=== PATIENT | male | born 1965 | race Caucasian/White ===

== ENCOUNTER 2017-03-10 16:14 | Outpatient (CLI) | payer OTHER ==
[~2017-03-10 16:14] MED LIST: ALEVE220 MG PO; AMBIEN5 MG PO
--- NOTE | 2017-03-10 16:26 | DIAGNOSTIC IMAGING REPORT ---
PROCEDURE: XR CHEST 2 VIEW INDICATION: SHORTNESS OF BREATH TECHNIQUE: PA and lateral views. COMPARISON: None. FINDINGS: Lungs are clear. Heart and mediastinum are normal. Thorax is normal. IMPRESSION: 1. Negative chest.
== END 2017-03-10 23:00 ==
LOC: XR SRH 16:14
DX: R06.02 Shortness of breath (principal)

== ENCOUNTER → 2017-04-22 | Outpatient (CLI) | payer OTHER ==
--- NOTE | 2017-04-23 10:41 | DIAGNOSTIC IMAGING REPORT ---
PROCEDURE: US ABDOMEN ULTRASOUND-LIMITED INDICATION: HEP C TECHNIQUE: Kirby scale and color Doppler sonographic images were obtained of the right upper quadrant. COMPARISON: 09/04/2015 FINDINGS: The liver echotexture is mildly hyperechoic, coarse, and heterogeneous. No mass or biliary dilatation. The liver margin is micronodular, with slight progression since the prior study. The gallbladder surgically absent. The common duct is 4.6 mm. In the area of the proximal pancreas is normal without visible ductal dilatation or mass. The visible portion of the inferior vena cava, abdominal aorta, and portal vein appear normal with appropriate direction of flow in the portal vein. Appropriate phasicity in hepatic vein. The right kidney is normal measuring 11.0 cm. No free fluid in the right upper quadrant. IMPRESSION: 1. Coarse hepatic echotexture and micronodular margins with slight progression since the prior study. 2. No hepatic mass. 3. Cholecystectomy. 4. Appropriate portal and systemic venous flow.
== END ==
LOC: RT SRH 12:48
DX: R94.31 Abnormal electrocardiogram [ECG] [EKG] (principal); R06.02 Shortness of breath; B19.20 Unspecified viral hepatitis C without hepatic coma; Z90.49 Acquired absence of other specified parts of digestive tract